=== PATIENT | female | born 1970 | race Caucasian/White ===

== ENCOUNTER → 2022-11-09 | Outpatient (REF) | LOC: M PLAIMG 12:54 | PROVIDERS: ATTEND Internal Medicine | DX: M19.011 Primary osteoarthritis, right shoulder (principal); M25.811 Other specified joint disorders, right shoulder; M17.11 Unilateral primary osteoarthritis, right knee ==

== ENCOUNTER → 2023-06-15 | Outpatient (REF) | LOC: M PLAIMG 09:22 | PROVIDERS: ATTEND Internal Medicine | DX: M19.011 Primary osteoarthritis, right shoulder (principal) ==